=== PATIENT | male | born 1995 | race African-American/Black ===

== ENCOUNTER 2017-09-27 17:10 | Emergency (ER) | payer SELFPAY | END 2017-09-27 17:42 | disposition home or self-care (01) | LOC: SCSER 17:10 | DX: R51 Headache (principal) | CPT/HCPCS: 87804; 99283 ==

== ENCOUNTER 2017-11-12 15:09 | Emergency (ER) | payer SELFPAY ==
[2017-11-12] MEDS ORDERED: Acetaminophen 500 MG TAB ONE (15:42)
[2017-11-12] MEDS ORDERED: Ondansetron ODT 4 MG TAB ONE (15:42)
[2017-11-12 16:15] LABS: #Basophils 0.2 thou/uL (0.0-0.2); #Lymphocytes 1.1 thou/uL (1.20-3.40); #Monocytes 1.3 thou/uL (0.11-0.59); #Neutrophils 10.8 thou/uL (1.40-6.50); %Basophils 1.4 % (0.0-1.0); %Eosinophils 0.1 % (0.0-10.0); %Lymphocytes 8.4 % (21.0-51.0); %Monocytes 9.9 % (0.0-10.0); %Neutrophils 80.3 % (42.0-75.0); Hemoglobin 15.8 g/dL (14.0-18.0); Mean Corpuscular Hemoglobin 28.2 pg (27.0-31.0); Platelet Count 224 thou/uL (130-400); RBC Distribution Width 10.6 % (11.5-14.5); Red Blood Cell (RBC) Count 5.62 mill/uL (4.70-6.10); White Blood Cell (WBC) Count 13.4 thou/uL (4.8-10.8)
[2017-11-12] MEDS ORDERED: Ketorolac Tromethamine 30 MG/ML VIAL ONE (16:18)
[2017-11-12 16:27] LABS: ALT (SGPT) 33 U/L (8-55); AST (SGOT) 24 U/L (5-34); Albumin 4.6 g/dL (3.5-5.0); Alkaline Phosphatase 57 U/L (40-150); Anion Gap 13 mmol/L (10-20); BUN (Urea Nitrogen) 8 mg/dL (8.9-20.6); Calc. Creatinine Clearance 0 mL/min (70-130); Calcium 9.6 mg/dL (7.8-10.44); Carbon Dioxide 27 mmol/L (22-29); Chloride 102 mmol/L (98-107); Estimated GFR-MDRD Greater than 90; Globulin 3.2 g/dL (2.4-3.5); Glucose 94 mg/dL (70-105); Lipase 66 U/L (8-78); Potassium 3.9 mmol/L (3.5-5.1); Protein, Total 7.8 g/dL (6.0-8.3); Sodium 138 mmol/L (136-145)
--- NOTE | 2017-11-12 16:31 | RAD ---
2 VIEW CHEST: Date: 11/12/17 INDICATION: Fever. Reference made to 07/03/12 exam. FINDINGS: There is consolidation, effusion, or discrete pneumothorax. Cardiac silhouette is within normal limit s of size. Osseous structures intact. IMPRESSION: No focal consolidation. POS: [facility]
[2017-11-12 17:03] LABS: Bilirubin Small (Negative); Blood, Urine Trace (Negative); Clarity Slightly Cloudy (Clear); Glucose, Urine (Dipstick) Negative (Negative); Leukocyte Negative (Negative); Nitrite Negative (Negative); Protein, Urine (Dipstick) 30 mg/dL (Neg-Trace)
[2017-11-12 17:11] LABS: Bacteria/HPF 1+ HPF (None Seen); Hyaline Casts/LPF 0-3 HYALINE CAST LPF (0-3 Hyaline); Squamous Epithelial 0-3 HPF (0-3)
--- NOTE | 2017-11-12 18:59 | CT ---
CT ABDOMEN AND PELVIS WITH IV CONTRAST: INDICATIONS: History of abdominal pain. FINDINGS: The lung bases are clear. No focal hepatic lesion is evident. The spleen, pancreas, adrenal glands, and kidneys appear within normal limits. Mild motion artifact slightly limits image detail of the upper abdomen. There is a normal appendix in the right lower quadrant. No free fluid is evident. No acute osseous abnormality is evident. IMPRESSION: No acute abnormality. POS: H
== END 2017-11-12 18:25 | disposition home or self-care (01) ==
LOC: SCSER 15:09
DX: B34.9 Viral infection, unspecified (principal)
CPT/HCPCS: 71046; 74177; 80053; 81003; 81015; 83605; 83690; 85025; 87040; 87081; 87086; 87430; 87804; 96374; J1885; Q0162

== ENCOUNTER 2018-07-16 17:09 | Emergency (ER) | payer SELFPAY ==
[2018-07-16] MEDS ORDERED: Ondansetron ODT 4 MG TAB ONE (17:28)
[2018-07-16] MEDS ORDERED: Ketorolac Tromethamine 30 MG/ML VIAL ONE (17:28)
== END 2018-07-16 18:03 | disposition home or self-care (01) ==
LOC: SCSER 17:09
DX: J02.9 Acute pharyngitis, unspecified (principal); B34.9 Viral infection, unspecified
CPT/HCPCS: 87804; 96372; J1885; Q0162